=== PATIENT | female | born 1945 | race Asian ===

== ENCOUNTER 2024-05-18 18:43 | Emergency (ER) | payer MEDICARE ==
[~2024-05-18] VITALS: Ht 160 cm; Wt 47.2 kg
[2024-05-18 18:45] VITALS: PULSE 78; RESP 18; TEMP 99.1
[2024-05-18] MEDS: TRAMADOL HCL 50 MG TAB PO ONE (21:15)
[2024-05-18] MEDS ORDERED: ULTRAM 50MG50 MG PO (22:19)
[2024-05-18 22:43] VITALS: BP 131/84; PULSE 73; RESP 18; TEMP 98.2; O2SAT 98
== END 2024-05-18 22:40 | disposition home or self-care (01) ==
LOC: FSED 18:52
DX: S22.080A Wedge compression fracture of T11-T12 vertebra, initial encounter for closed fracture (principal); M54.6 Pain in thoracic spine; W01.0XXA Fall on same level from slipping, tripping and stumbling without subsequent striking against object, initial encounter; Y93.01 Activity, walking, marching and hiking; Y92.89 Other specified places as the place of occurrence of the external cause; M48.061 Spinal stenosis, lumbar region without neurogenic claudication; I10 Essential (primary) hypertension; E78.5 Hyperlipidemia, unspecified
CPT/HCPCS: 72131; 99284